=== PATIENT | male | born 1960 | race Caucasian/White ===

== ENCOUNTER 2020-04-22 16:34 | Observation (INO) | payer OTHER, SELFPAY ==
[2020-04-22] VITALS (19 sets, daily range): BP systolic 96–162; BP diastolic 69–94; PULSE 63–193; RESP 6–163; TEMP 36.4–36.6; O2SAT 96–99; BMI 25.7
[2020-04-22] MEDS: ADENOSINE 6 MG/2 ML VIAL IV (16:58)
[2020-04-22] MEDS: SODIUM CHLORIDE 0.9% 1,000 ML 1000 ML IV ×2 (17:12→18:49)
--- NOTE | 2020-04-22 17:13 | PC.NURSE ---
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 He sat down to drink some water and apply a cool compress and his heart began to race faster. He reports a history of episodes similar to this at least 3 times in the passed. In the past he was able to slow his heart down on his own. Today he was not able to control it on his own and came into the ED. Once here he was given 6 mg of adenosine. His rate dropped down to 95 bpm and feels better.
[2020-04-22 17:50] LABS: Add Manual Diff / Slide Review NO; Basophils Absolute Auto 0 /uL (0-100); Basophils Percent Auto 0.2 % (0-2); Eosinophils Absolute Auto 0 /uL (0-450); Eosinophils Percent Auto 0.1 % (2-4); Hematocrit 46.2 % (41-53); Hemoglobin 15.4 g/dL (13.5-17.5); Lymphocytes Absolute Auto 1000 /uL (1100-4500); Lymphocytes Percent Auto 5.2 % (25-40); Mean Corpuscular HGB Conc 33.4 % (30-36); Mean Corpuscular Hemoglobin 31.7 PG (26-34); Monocytes Absolute Auto 800 /uL (0-900); Monocytes Percent Auto 4.3 % (3-14); Neutrophils Absolute Auto 16900 /uL (1500-7000); Neutrophils Percent Auto 90.2 % (50-75); Platelet Count 314 X10^3/uL (150-400); Red Blood Cell Count 4.87 X10^6/uL (4.5-5.9); Red Cell Distribution Width 13.6 % (11.6-14.8); White Blood Cell Count 18.7 X10^3/uL (4.5-11.0)
[2020-04-22 17:58] LABS: Alanine Aminotransferase 32 IU/L (<50); Albumin 4.7 g/dL (3.5-5.0); Albumin Globulin Ratio 1.5 (1.0-2.8); Alkaline Phosphatase 67 U/L (38-126); Aspartate Aminotransferase 38 IU/L (17-59); BUN Creatinine Ratio 17.9 (6-22); Blood Urea Nitrogen 26 mg/dL (9-20); Carbon Dioxide 20 mmol/L (22-32); Chloride 102 mmol/L (98-107); Estimated Glomerular Filt Rate 49.8 mL/min (>60); Globulin 3.1 g/dL (1.7-4.1); Glucose 171 mg/dL (70-100); HEMOLYSIS < 15 (0-50); Potassium 4.2 mmol/L (3.4-5.1); Sodium 134 mmol/L (137-145); Total Protein 7.8 g/dL (6.3-8.2)
--- NOTE | 2020-04-22 18:12 | ED_ITS ---
HPI - Arrhythmia/Palpitations General Chief Complaint: Arrhythmia/Palpitations Stated Complaint: Heart Palpitations Time Seen by Provider: 04/22/20 16:40 Source: patient Mode of arrival: Ambulatory Limitations: no limitations History of Present Illness HPI narrative: 59-year-old gentleman with no significant medical history on no medications with prior episodes of supraventricular tachycardia presents with supraventricular tachycardia. He has been outside and active and noted his heart rate racing. He did not complain of dyspnea or chest pain. After 3 hours when his rate did not slow he came into the emergency department. Related Data Allergies Allergy/AdvReac Type Severity Reaction Status Date / Time No Known Drug Allergies Allergy Verified 04/22/20 17:13 Review of Systems Review of Systems Narrative: Pertinent positive and negative findings as per HPI Remainder of review of systems is otherwise unremarkable for Constitutional: Fevers, chills, weakness ENT: No sore throat, neck pain, ear pain CV: Chest pain, dyspnea on exertion Respiratory: Cough, wheeze, dyspnea GI: Nausea, vomiting, diarrhea, change in bowel habits, black or bloody stools : Dysuria, hematuria, flank pain MS: Muscle weakness, numbness, joint swelling or warmth Neuro: Syncope, dizziness, tingling Patient History Social History Smoking Status: Never smoker Smoking Status: Never smoker alcohol intake frequency: 0-2 drinks per day Substance Use Type: does not use Exam Narrative Exam Narrative: General: Healthy appearing, in no acute distress. Able to give a complete and coherent history. Well-nourished well-developed HEENT: Moist mucous membranes, normal sclera with reactive pupils, Neck: No JVD, supple Respiratory: Lungs are clear to auscultation, no wheezing no rales no rhonchi. Full and symmetrical air movement Cardiac: Significantly elevated heart rate, Regular without murmurs no bruits Abdomen: Soft nontender good bowel tones, no flank pain Skin: Warm and dry, well perfused Neurologic: Grossly neurologically intact with no obvious asymmetries or abnormalities Extremities: No trauma, Psych: Cooperative, appropriate insight and affect Initial Vital Signs Initial Vital Signs: Vital Signs Temperature 97.9 F 04/22/20 16:41 Pulse Rate 192 H 04/22/20 16:41 Respiratory Rate 163 H 04/22/20 16:41 Blood Pressure 96/69 04/22/20 16:41 Pulse Oximetry 99 04/22/20 16:41 Course Orders Ordered: ED Orders 04/22/20 16:53 Complete Blood Count AUTO DIFF Stat Comprehensive Metabolic Panel Stat Troponin I Stat 04/22/20 19:09 Troponin I Stat Discontinued Medications Aspirin (Aspirin Chew) 324 mg PO NOW ONE Stop: 04/22/20 20:12 Last Admin: 04/22/20 20:14 Dose: 324 mg Documented by: LEOLA Sodium Chloride (Normal Saline 0.9%) 1,000 mls @ 1,000 mls/hr IV BOLUS ONE Stop: 04/22/20 18:10 Last Infusion: 04/22/20 18:30 Dose: 0 mls/hr Documented by: Admin: 04/22/20 17:12 Dose: 1,000 mls/hr Documented by: LEOLA Sodium Chloride (Normal Saline 0.9%) 1,000 mls @ 1,000 mls/hr IV BOLUS ONE Stop: 04/22/20 19:45 Last Infusion: 04/22/20 20:07 Dose: 0 mls/hr Documented by: Admin: 04/22/20 18:49 Dose: 1,000 mls/hr Documented by: JUANITO Vital Signs Vital signs: Vital Signs - 8 hr 04/22/20 16:41 04/22/20 16:53 04/22/20 16:58 Temperature 97.9 F Pulse Rate 192 H 193 H 96 H Respiratory Rate 163 H 16 20 Blood Pressure 96/69 159/85 H Pulse Oximetry 99 98 97 04/22/20 17:00 04/22/20 17:04 04/22/20 17:15 Temperature Pulse Rate 101 H 96 H 94 H Respiratory Rate 20 20 19 Blood Pressure 162/86 H 162/83 H 156/83 H Pulse Oximetry 98 97 97 04/22/20 17:30 04/22/20 17:45 04/22/20 18:00 Temperature Pulse Rate 79 77 76 Respiratory Rate 10 L 6 L 10 L Blood Pressure 152/78 H 142/83 H 147/90 H Pulse Oximetry 98 96 98 04/22/20 18:15 04/22/20 18:36 04/22/20 18:39 Temperature Pulse Rate 79 75 70 Respiratory Rate 28 H 18 Blood Pressure 147/94 H 140/77 Pulse Oximetry 97 99 99 04/22/20 19:00 04/22/20 19:30 Temperature Pulse Rate 71 64 Respiratory Rate Blood Pressure 136/77 Pulse Oximetry 97 98 MDM - Arrhythmia/Palpitations Medical Records Attestation: I reviewed the patient's medical records. Lab Data Attestation: I reviewed the patient's lab results. Result diagrams: 04/22/20 16:53 04/22/20 16:53 Labs: Lab Results 04/22/20 04/22/20 04/22/20 Range/Units 16:53 16:53 19:09 WBC 18.7 H (4.5-11.0) X10^3/uL RBC 4.87 (4.5-5.9) X10^6/uL Hgb 15.4 (13.5-17.5) g/dL Hct 46.2 (41-53) % MCV 95.0 (80-100) fL MCH 31.7 (26-34) PG MCHC 33.4 (30-36) % RDW 13.6 (11.6-14.8) % Plt Count 314 (150-400) X10^3/uL Neut % (Auto) 90.2 H (50-75) % Lymph % (Auto) 5.2 L (25-40) % [place] % (Auto) 4.3 (3-14) % Eos % (Auto) 0.1 L (2-4) % Baso % (Auto) 0.2 (0-2) % Neut # (Auto) 32136 H (5925-5319) /uL Lymph # (Auto) 1000 L (3133-4958) /uL Sau[place] # (Auto) 800 (0-900) /uL Eos # (Auto) 0 (0-450) /uL Baso # (Auto) 0 (0-100) /uL Sodium 134 L (137-145) mmol/L Potassium 4.2 (3.4-5.1) mmol/L Chloride 102 (98-107) mmol/L Carbon Dioxide 20 L (22-32) mmol/L BUN 26 H (9-20) mg/dL Creatinine 1.45 H (0.66-1.25) mg/dL Estimated GFR 49.8 L (>60) mL/min BUN/Creatinine Ratio 17.9 (6-22) Glucose 171 H (70-100) mg/dL Calcium 10.0 (8.4-10.2) mg/dL Total Bilirubin 1.0 (0.2-1.3) mg/dL AST 38 (17-59) IU/L ALT 32 (<50) IU/L Alkaline Phosphatase 67 (38-126) U/L Troponin I 0.237 H* 1.020 H* (0.01-0.034) ng/mL Total Protein 7.8 (6.3-8.2) g/dL Albumin 4.7 (3.5-5.0) g/dL Globulin 3.1 (1.7-4.1) g/dL Albumin/Globulin Ratio 1.5 (1.0-2.8) ECG Data Attestation: I personally reviewed and interpreted this ECG as follows: Interpretation: 1. 16:53 SVT at 189, left axis deviation, nonspecific ST T wave abnormalities 2. immediately post conversion Sinus rhythm at a rate of95 Less pronounced left axis deviation, incomplete right bundle branch block nonspecific ST T wave changes, peaked T-waves 3. 1 hour post conversion post 1 L of fluid 7Sinus rhythm at a rate of6 Normal intervals, axis has returned To normal, incomplete right bundle branch block nonspecific ST T wave changes without acute ischemia MDM Narrative Medical decision making narrative: 59-year-old gentleman with no significant medical history presents with 3 hours of SVT that converted with 0.6 mg of adenosine. He tolerated that well and has no additional heart complaints. Labs returned with a mildly elevated creatinine at 0.14 and a troponin elevated at 0.237 with mild leukocytosis that is unexplained as well. 1 L of fluid was given and troponin is repeated and increased to 1.02. Still no clinical complaints consistent with acute coronary syndrome Care is reviewed with Dr. Vigil, cardiology. His recommendation was ob servation admission overnight trending troponins, echocardiogram tomorrow and follow-up plan when additional data points are available. Findings and concerns reviewed with patient and his who are agreeable to hospital admission at this time. Is currently stable. Will give him chewable aspirin but will hold on heparin for the time being. Care is reviewed with Dr Wilcox. Discharge Plan Departure Patient Disposition: Home Clinical Impression: Sinus tachycardia Instructions: DI for Paroxysmal Supraventricular Tachycardia Activity Restrictions/Additional Instructions: Thank you for coming in today You are in a supraventricular tachycardia with your heart rate going between 190 in 200 beats per minute. We converted you to sinus rhythm with a single dose of 6 mg of adenosine. Your labs are notable only for some mild dehydration. I would encourage you to recheck kidney function with your regular provider just as part of routine follow-up I have included copies of your EKGs to share with her as well. Referrals: Hodan Matt MD [Primary Care Provider] -
[2020-04-22 18:33] LABS: Troponin I 0.237 ng/mL (0.01-0.034)
[2020-04-22] MEDS: ASPIRIN 81 MG CHEW TAB 324 MG PO (20:14)
--- NOTE | 2020-04-22 21:11 | PM.HP.1 ---
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 The palpitations lasted 3 hours so he came to the ED where he was diagnosed with a very typical SVT EKG and converted to SR with 6 mg of Adenosine. His initial troponin is 0.2 and a follow-up several hours later is 1.02. He has no history of previous documented tachy arrhythmias or coronary artery disease but he has noticed 1-2 minutes spells of palpitations occurring every few months over the last year, usually responding to what sounds like basic vagal maneuvers. He did not experience any chest pain or shortness of breath but he was feeling clammy and was taking deep breaths in order to try to control the palpitations. His father has a history of coronary stenting at age 64. He does not have diabetes, hypertension, hyperlipidemia or prior vascular disease that he knows of. His EKG after conversion shows no abnormal ST or T-wave changes. He was discussed with cardiology and Dr. Vigil has recommended repeat EKG and troponin along with echocardiogram in the morning and cardiology follow-up as an outpatient if the echocardiogram is normal. The elevated troponin in the context of 3 hours of tachycardia could be considered a ?failed stress test equivalent.? He has been started on aspirin and will be followed on telemetry overnight. The question to be answered is whether this is a non ST elevation NM versus a troponin leak of tachycardia induced myocardial strain. He has additional laboratory abnormalities of white count 18.7, creatinine 1.45, glucose 171. He will also need clarified whether those are signs of chronic kidney disease and diabetes type 2 or are similarly reactions to the 3 hours of SVT. Patient History Medical History (Updated 04/22/20 @ 21:29 by Unique Wilcox MD) SVT (supraventricular tachycardia) (Acute) Surgical History No significant past surgical history (Acute) Family & Social History Family History (Updated 04/22/20 @ 21:29 by Unique Wilcox MD) Mother COPD (chronic obstructive pulmonary disease) Father CAD (coronary artery disease) Social History: He drinks 1 beer about 4 days a week, denies drugs and smoking. His backup decision maker is his . 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 Safety & Behavioral: Been Physically Hurt or No Threatened By a Person Tobacco & Substance use: Smoking Status Never smoker alcohol intake frequency 0-2 drinks per day Substance Use Type does not use Meds Home Medications and Allergies Allergies Allergy/AdvReac Type Severity Reaction Status Date / Time No Known Drug Allergies Allergy Verified 04/22/20 17:13 Review of Systems Review of Systems Narrative: Positive for palpitations and mild diaphoresis Negative for chest pain, shortness of breath, fevers, chills, sweats, coughing, abdominal pain, nausea, vomiting, diarrhea, bleeding, rash, joint pain, seizures, headaches, new allergies, difficulty talking or walking. ROS: Yes All systems reviewed with the patient and are negative except as otherwise documented Exam Vital Signs (past 8 hours): - 04/22/20 16:41 04/22/20 16:53 04/22/20 16:58 Temperature 97.9 F Pulse Rate 192 H 193 H 96 H Respiratory Rate 163 H 16 20 Blood Pressure 96/69 159/85 H Pulse Oximetry 99 98 97 04/22/20 17:00 04/22/20 17:04 04/22/20 17:15 Temperature Pulse Rate 101 H 96 H 94 H Respiratory Rate 20 20 19 Blood Pressure 162/86 H 162/83 H 156/83 H Pulse Oximetry 98 97 97 04/22/20 17:30 04/22/20 17:45 04/22/20 18:00 Temperature Pulse Rate 79 77 76 Respiratory Rate 10 L 6 L 10 L Blood Pressure 152/78 H 142/83 H 147/90 H Pulse Oximetry 98 96 98 04/22/20 18:15 04/22/20 18:36 04/22/20 18:39 Temperature Pulse Rate 79 75 70 Respiratory Rate 28 H 18 Blood Pressure 147/94 H 140/77 Pulse Oximetry 97 99 99 04/22/20 19:00 04/22/20 19:30 04/22/20 19:57 Temperature Pulse Rate 71 64 64 Respiratory Rate Blood Pressure 136/77 Pulse Oximetry 97 98 99 04/22/20 21:01 Temperature Pulse Rate Respiratory Rate Blood Pressure 149/86 H Pulse Oximetry Oxygen Delivery Method Room Air Narrative Exam Narrative: He is alert and oriented x3, in no apparent distress Pupils are equally round and reactive to light and accommodation. Extraocular muscles are intact Sclerae are pink and nonicteric Throat looks normal No lymph nodes are felt head, neck, supraclavicular area JVD is less than 6 cm No carotid bruits are heard There is no thyromegaly Heart is regular rate and rhythm without murmur Lungs are clear to auscultation bilaterally There is no chest wall tenderness Abdomen is soft, bowel sounds positive, nontender, no organomegaly. Extremities have no ankle edema Skin has no rash or jaundice Neurological exam Cranial nerves 2-12 test intact There is no tremor Motor function is 5/5 throughout No problems with gait and balance Sensation intact with slightly increased reflexes. Objective Labs Result Diagrams: 04/22/20 16:53 04/22/20 16:53 Labs: Laboratory Results - last 24 hr 04/22/20 04/22/20 04/22/20 16:53 16:53 19:09 WBC 18.7 H RBC 4.87 Hgb 15.4 Hct 46.2 MCV 95.0 MCH 31.7 MCHC 33.4 RDW 13.6 Plt Count 314 Neut % (Auto) 90.2 H Lymph % (Auto) 5.2 L Ellis % (Auto) 4.3 Eos % (Auto) 0.1 L Baso % (Auto) 0.2 Neut # (Auto) 29979 H Lymph # (Auto) 1000 L Ellis # (Auto) 800 Eos # (Auto) 0 Baso # (Auto) 0 Sodium 134 L Potassium 4.2 Chloride 102 Carbon Dioxide 20 L BUN 26 H Creatinine 1.45 H Estimated GFR 49.8 L BUN/Creatinine Ratio 17.9 Glucose 171 H Calcium 10.0 Total Bilirubin 1.0 AST 38 ALT 32 Alkaline Phosphatase 67 Troponin I 0.237 H* 1.020 H* Total Protein 7.8 Albumin 4.7 Globulin 3.1 Albumin/Globulin Ratio 1.5 Assessment & Plan Assessment & Plan narrative: Supraventricular tachycardia -First documented episode of approximately 3 hours, triggered by exertional drumming in a band, resolved with 6 mg IV adenosine today. -check TSH and follow-up troponins/EKG -discuss vagal maneuvers Elevated Troponin -this is most likely an enzyme leak secondary to the prolonged tachycardia of 200 beats per minute. -EKG shows no signs of ischemia which along with absence of chest pain makes it less likely that this is a NSTEMI -repeat EKG and troponin in the morning with echocardiogram to clarify evidence of current ischemia. -outpatient evaluation by Cardiology as discussed with Dr. Vigil, if the echo is normal and he continues to experience no signs of chest pain. -per cardiology will initiate on aspirin and use only low-dose Lovenox for now. -Check a.m. 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
[2020-04-22 22:04] LABS: COVID19 -Nasal RAPID Negative (Negative)
[2020-04-22 22:20] LABS: Thyroid Stimulating Hormone 1.65 uIU/mL (0.47-4.68)
--- NOTE | 2020-04-22 22:28 | PC.ADMIT ---
[address] Admission Note: The patient,Jordi Arroyo,59 y/o, was given written information regarding hospital policies, unit procedures and contact persons. Patient's smoking status: Never smoker. Vital Signs - 8 hr 04/22/20 16:41 04/22/20 16:53 04/22/20 16:58 Temperature 97.9 F Pulse Rate 192 H 193 H 96 H Respiratory Rate 163 H 16 20 Blood Pressure 96/69 159/85 H Pulse Oximetry 99 98 97 04/22/20 17:00 04/22/20 17:04 04/22/20 17:15 Temperature Pulse Rate 101 H 96 H 94 H Respiratory Rate 20 20 19 Blood Pressure 162/86 H 162/83 H 156/83 H Pulse Oximetry 98 97 97 04/22/20 17:30 04/22/20 17:45 04/22/20 18:00 Temperature Pulse Rate 79 77 76 Respiratory Rate 10 L 6 L 10 L Blood Pressure 152/78 H 142/83 H 147/90 H Pulse Oximetry 98 96 98 04/22/20 18:15 04/22/20 18:36 04/22/20 18:39 Temperature Pulse Rate 79 75 70 Respiratory Rate 28 H 18 Blood Pressure 147/94 H 140/77 Pulse Oximetry 97 99 99 04/22/20 19:00 04/22/20 19:30 04/22/20 19:57 Temperature Pulse Rate 71 64 64 Respiratory Rate Blood Pressure 136/77 Pulse Oximetry 97 98 99 04/22/20 21:01 04/22/20 22:14 Temperature Pulse Rate 63 Respiratory Rate 16 Blood Pressure 149/86 H 137/79 Pulse Oximetry 97 Patient up from ED via wheelchair. Patient was able to get out of the wheelchair and ambulate to the bed. Gait steady. Patient denies any chest discomfort or SOB w/rest or activity. Tele monitor getting placed at this time, Heart rate in the 60s. Patient A&O, calm and cooperative.
[2020-04-22] MEDS: SODIUM CHLORIDE 0.9% 1,000 ML 84 ML IV (22:34)
[2020-04-23 05:00] VITALS: BP 124/70; PULSE 60; RESP 16; TEMP 36.1; O2SAT 99
[2020-04-23 06:00] LABS: Add Manual Diff / Slide Review NO; Basophils Absolute Auto 100 /uL (0-100); Eosinophils Absolute Auto 100 /uL (0-450); Eosinophils Percent Auto 1.1 % (2-4); Hematocrit 39.6 % (41-53); Hemoglobin 13.3 g/dL (13.5-17.5); Lymphocytes Absolute Auto 1800 /uL (1100-4500); Lymphocytes Percent Auto 21.4 % (25-40); Mean Corpuscular HGB Conc 33.5 % (30-36); Mean Corpuscular Hemoglobin 31.8 PG (26-34); Mean Corpuscular Volume 95.1 fL (80-100); Monocytes Absolute Auto 700 /uL (0-900); Monocytes Percent Auto 8.9 % (3-14); Neutrophils Absolute Auto 5700 /uL (1500-7000); Neutrophils Percent Auto 67.6 % (50-75); Platelet Count 262 X10^3/uL (150-400); Red Blood Cell Count 4.17 X10^6/uL (4.5-5.9); Red Cell Distribution Width 13.9 % (11.6-14.8); White Blood Cell Count 8.4 X10^3/uL (4.5-11.0)
[2020-04-23 06:07] LABS: Alanine Aminotransferase 23 IU/L (<50); Albumin 3.6 g/dL (3.5-5.0); Albumin Globulin Ratio 1.4 (1.0-2.8); Alkaline Phosphatase 47 U/L (38-126); Aspartate Aminotransferase 29 IU/L (17-59); BUN Creatinine Ratio 17.9 (6-22); Blood Urea Nitrogen 15 mg/dL (9-20); Calcium 8.8 mg/dL (8.4-10.2); Carbon Dioxide 26 mmol/L (22-32); Chloride 108 mmol/L (98-107); Estimated Glomerular Filt Rate > 60.0 mL/min (>60); Globulin 2.5 g/dL (1.7-4.1); Glucose 96 mg/dL (70-100); HEMOLYSIS < 15 (0-50); Magnesium 2.1 mg/dL (1.6-2.3); Potassium 4.2 mmol/L (3.4-5.1); Sodium 138 mmol/L (137-145); Total Protein 6.1 g/dL (6.3-8.2)
[2020-04-23 06:12] LABS: Cholesterol 176 mg/dL (140-199); HDL Cholesterol 69 mg/dL (40-60); LDL Cholesterol Calculated 89 mg/dL (<100); Triglycerides 88 mg/dL (35-150)
--- NOTE | 2020-04-23 06:43 | PC.NURSE ---
Critical Lab At 0628 recieved Critical trop of 1.720, Notified DR Wilcox by phone, no new orders given, read EKG results him and reported that pt has denied pain all shift.
[2020-04-23 08:00] VITALS: BP 131/67; PULSE 63; RESP 16; TEMP 37.1; O2SAT 99
[2020-04-23] MEDS: ENOXAPARIN 40 MG/0.4 ML SYRINGE SUBCUT (08:20)
--- NOTE | 2020-04-23 10:28 | PC.NURSE ---
948 notified by DOUBLE BOTTOM DRIVER that patient had 8 beat run of VTACH. Strip printed and shown to Dr. Carlson. Patient assessed and sitting up in bed, denies symptoms at this time, states he thinks he did feel a little palpation or flutter in his chest for a few seconds previously. Continue to follow closely. Call light within reach.
[2020-04-23] MEDS: SODIUM CHLORIDE 0.9% 1,000 ML 84 ML IV (11:17)
--- NOTE | 2020-04-23 11:17 | CM.DANOTE ---
DCP: Case received, EMR reviewed and met with patient. Introduced self and role. Was able to obtain information from patient regarding his baseline activity status prior to hospitalization. DCP assessment completed with information currently available. Patient is a 59 year old male who admitted yesterday afternoon to the care of the hospitalist team. PCP: Dr. Matt. Payer: confirmed: [facility]. Patient came to the hospital via private vehicle secondary to heart palpitations. 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 Patient indicated, he has had this before, and it usually passes, but this time, it didn't. Patient was diagnosed with SVT. Met with patient in his room. He is alert and oriented, he works at [employer]. He resides in [place] with his spouse, Ewa. He will be having another troponin drawn this afternoon. P: DCP to continue to follow. There is a possibility that patient could be transferred over to [facility], will depend upon his lab work. Marija Jhaveri RN/Key Maker
[2020-04-23 12:00] VITALS: BP 136/83; PULSE 59; RESP 16; TEMP 37; O2SAT 99
--- NOTE | 2020-04-23 12:09 | DI.ECHO.S_ITS ---
Echocardiogram Report + + :Name: HELENA ARAUZ Study Date: 04/23/2020 Height: 70 in : :[facility] Weight: 185 lb : : Gender: Male BSA: 2.0 m2 : :: 1960 Age: 59 yrs BP: 138/68 mmHg: :Reason For Study: Palpitations : :Ordering Physician: [place] : :Hospitalist Performed By: Darlene Martins : :Referring: LINDSEY GALLEGOS : + + Interpretation Summary 1) Normal left ventriuclar thickness, size, wall motion, and systolic function (EF 65-70%). 2) Normal right ventricular size and function. 3) No significant valvular abnormalities. 4) No prior Echo available for comparison. Procedure: A two-dimensional transthoracic echocardiogram with color flow and Doppler was performed. The study quality was technically adequate. There is no prior echocardiogram noted for this patient. The patient was in normal sinus rhythm during the exam. Left Ventricle: The left ventricle is normal in size. There is normal left ventricular wall thickness. The ejection fraction is estimated to be 65-70%. Left ventricular wall motion is normal. Diastolic parameters suggest probable normal left ventricular diastolic function and normal filling pressures. Right Ventricle: The right ventricle is normal in size and function. Atria: Both atria are normal in size. There is no Doppler evidence for an atrial septal defect. Mitral Valve: The mitral valve is normal in structure and function. There is mild mitral regurgitation. Aortic Valve: The aortic valve is trileaflet. The aortic valve opens well. There is no aortic valve stenosis. No aortic regurgitation is present. Tricuspid Valve: The tricuspid valve is normal in structure and function. There is a trace or physiologic amount of tricuspid regurgitation. Pulmonary artery pressures cannot be estimated because of the lack of a measurable TR jet velocity. Pulmonic Valve: The pulmonic valve is not well seen, but is grossly normal. There is a trace or physiologic amount of pulmonic regurgitation. Great Vessels: The ascending aorta is normal in size. The IVC is of normal diameter and collapses greater than 50% with a sniff. This suggests a low right atrial pressure of 3 mm Hg. Pericardium/ Pleura There is no pericardial effusion. There is no pleural effusion. MMode/2D Measurements & Calculations LVIDd: 5.1 cm LVOT diam: 2.2 cm LVIDs: 2.9 cm asc Aorta Diam: 2.9 cm IVSd: 0.88 cm Ao Arch Diam (Prox Trans): 3.0 cm LVPWd: 0.71 cm LV storey. diameter/BSA (cm/m^2): 2.5 LV sys. diameter/BSA (cm/m^2): 1.4 FS: 43.2 % LA A2 area: 20.1 cm2 RA long axis: 5.6 cm LA A4 area: 15.7 cm2 RA area: 18.3 cm2 LA length (vol): 5.6 cm RA vol: 50.9 ml LA vol: 48.2 ml RA : 25.2 ml/m2 LA vol index: 23.8 ml/m2 RVD1 (basal): 3.5 cm TAPSE: 2.9 cm Doppler Measurements & Calculations Ao V2 max: 182.0 cm/sec LVOT Max John: 109.9 cm/sec Ao V2 mean: 132.6 cm/sec LV V1 max P.8 mmHg Ao V2 VTI: 36.7 cm LV V1 VTI: 22.0 cm Ao max P.2 mmHg Ao mean P.7 mmHg ANGELA(I,D): 2.4 cm2 MV E max john: 87.5 cm/sec ANGELA(V,D): 2.4 cm2 MV A max john: 71.3 cm/sec ANGELA indexed to BSA (cm^2/m^2): 1.2 MV E/A: 1.2 sev ratio: 0.60 Med Peak E' John: 8.7 cm/sec E/E' med: 10.0 Lat Peak E' John: 9.1 cm/sec E/E' lat: 9.6 E/e' average: 9.8 MV dec time: 0.16 sec SV(LVOT): 86.8 ml Reading Physician:01:17 PM
[2020-04-23 14:03] LABS: Troponin I 0.934 ng/mL (0.01-0.034)
[2020-04-23 15:20] VITALS: BP 129/76; PULSE 59; RESP 17; TEMP 37; O2SAT 97
--- NOTE | 2020-04-23 17:03 | PM.DS.1 ---
History of Present Illness History of Present Illness Date Patient Seen: 04/23/20 Time Patient Seen: 17:03 Chief complaint: Heart Palpitations Narrative: As per Dr. 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 The palpitations lasted 3 hours so he came to the ED where he was diagnosed with a very typical SVT EKG and converted to SR with 6 mg of Adenosine. His initial troponin is 0.2 and a follow-up several hours later is 1.02. He has no history of previous documented tachy arrhythmias or coronary artery disease but he has noticed 1-2 minutes spells of palpitations occurring every few months over the last year, usually responding to what sounds like basic vagal maneuvers. He did not experience any chest pain or shortness of breath but he was feeling clammy and was taking deep breaths in order to try to control the palpitations. His father has a history of coronary stenting at age 64. He does not have diabetes, hypertension, hyperlipidemia or prior vascular disease that he knows of. His EKG after conversion shows no abnormal ST or T-wave changes. He was discussed with cardiology and Dr. Vigil has recommended repeat EKG and troponin along with echocardiogram in the morning and cardiology follow-up as an outpatient if the echocardiogram is normal. The elevated troponin in the context of 3 hours of tachycardia could be considered a ?failed stress test equivalent.? He has been started on aspirin and will be followed on telemetry overnight. The question to be answered is whether this is a non ST elevation [place] versus a troponin leak of tachycardia induced myocardial strain. He has additional laboratory abnormalities of white count 18.7, creatinine 1.45, glucose 171. He will also need clarified whether those are signs of chronic kidney disease and diabetes type 2 or are similarly reactions to the 3 hours of SVT. Discharge Providers Provider Date of admission: 04/22/20 22:15 Discharge Date: 04/23/20 Primary care physician: Hodan Matt MD Discharge provider: Tristen Carlson DO Summary Hospital Course Discharge Diagnosis: 1. Supraventricular tachycardia, resolved, present on admission 2. Elevated troponin secondary to demand ischemia, acute, present on admission 3. Dehydration, acute, present on admission, resolved 4. Acute kidney injury, present on admission, resolved 4. Leukocytosis, acute, present on admission, resolved Hospital Course: Jordi Arroyo is a 59-year-old male who was admitted with a supraventricular tachycardia and elevated troponin. Patient had been drumming on a truck outside, and based on laboratory evaluation was likely severely dehydrated with leukocytosis, elevated creatinine that all improved the following morning. He was given fluid resuscitation and improved. He did have a couple episodes of nonsustained ventricular tachycardia on telemetry monitoring while admitted, but these were very short lived in the patient was asymptomatic (3 and 6 beat episodes a few hours apart). His electrolytes were unremarkable. His echocardiogram was unremarkable with an EF of 60 to 65% with no significant wall motion abnormalities and no valvular abnormalities as well. He had no chest pain. Troponin ultimately peaked at 1.7 in the down trended. Lipid panel was unremarkable. Per cardiology, he has essentially failed a stress test and will need to follow-up with cardiology as an outpatient for further ischemic evaluation. For now he will be started on aspirin and a cholesterol medication for medical management of possible heart disease. Status at Discharge Cognitive/behavioral status at discharge: oriented Exam Vital Signs (past 8 hours): - 04/23/20 12:00 04/23/20 15:20 Temperature 98.6 F 98.6 F Pulse Rate 59 L 59 L Respiratory Rate 16 17 Blood Pressure 136/83 129/76 Pulse Oximetry 99 97 Oxygen Delivery Method Nasal Cannula Oxygen Flow Rate 0 Narrative Exam Narrative: GENERAL APPEARANCE: Well developed, well nourished, in no acute distress. SKIN: Inspection of the skin reveals no rashes, ulcerations or petechiae. HEENT: Normocephalic atraumatic, extraocular muscles are intact, oropharynx is clear and mucous membranes are moist, neck is supple without adenopathy NECK: Supple and symmetric. There was no thyroid enlargement, and no tenderness, or masses were felt. CHEST: Normal AP diameter and normal contour without any kyphoscoliosis. LUNGS: Auscultation of the lungs revealed no wheezes, rhonchi, or rales. CARDIOVASCULAR: There was a regular rate and rhythm without any murmurs, gallops, rubs. Peripheral pulses were 2+ and symmetric. ABDOMEN: Soft and nontender with normal bowel sounds. No ascites was noted. MUSCULOSKELETAL: There was no tenderness or effusions noted. Muscle strength and tone were normal. EXTREMITIES: No cyanosis, clubbing or edema. NEUROLOGIC: Alert and oriented x 3. Normal affect. Gait was normal. Strength is +5/5 in the Upper Extremities and Lower Extremities Bilaterally. Sensation to touch was normal. Objective Labs Result Diagrams: 04/23/20 05:35 04/23/20 05:35 Labs: Laboratory Results - last 24 hr 04/22/20 04/22/20 04/22/20 16:53 16:53 16:53 WBC 18.7 H RBC 4.87 Hgb 15.4 Hct 46.2 MCV 95.0 MCH 31.7 MCHC 33.4 RDW 13.6 Plt Count 314 Neut % (Auto) 90.2 H Lymph % (Auto) 5.2 L [place] % (Auto) 4.3 Eos % (Auto) 0.1 L Baso % (Auto) 0.2 Neut # (Auto) 84409 H Lymph # (Auto) 1000 L [place] # (Auto) 800 Eos # (Auto) 0 Baso # (Auto) 0 Sodium 134 L Potassium 4.2 Chloride 102 Carbon Dioxide 20 L BUN 26 H Creatinine 1.45 H Estimated GFR 49.8 L BUN/Creatinine Ratio 17.9 Glucose 171 H Calcium 10.0 Magnesium Total Bilirubin 1.0 AST 38 ALT 32 Alkaline Phosphatase 67 Troponin I 0.237 H* Total Protein 7.8 Albumin 4.7 Globulin 3.1 Albumin/Globulin Ratio 1.5 Triglycerides Cholesterol LDL Cholesterol, Calc HDL Cholesterol TSH 1.65 COVID-19 PCR 04/22/20 04/22/20 04/23/20 19:09 20:20 05:35 WBC RBC Hgb Hct MCV MCH MCHC RDW Plt Count Neut % (Auto) Lymph % (Auto) [place] % (Auto) Eos % (Auto) Baso % (Auto) Neut # (Auto) Lymph # (Auto) [place] # (Auto) Eos # (Auto) Baso # (Auto) Sodium Potassium Chloride Carbon Dioxide BUN Creatinine Estimated GFR BUN/Creatinine Ratio Glucose Calcium Magnesium Total Bilirubin AST ALT Alkaline Phosphatase Troponin I 1.020 H* Total Protein Albumin Globulin Albumin/Globulin Ratio Triglycerides 88 Cholesterol 176 LDL Cholesterol, Calc 89 HDL Cholesterol 69 H TSH COVID-19 PCR Negative 04/23/20 04/23/20 04/23/20 05:35 05:35 13:26 WBC 8.4 D RBC 4.17 L Hgb 13.3 L Hct 39.6 L MCV 95.1 MCH 31.8 MCHC 33.5 RDW 13.9 Plt Count 262 Neut % (Auto) 67.6 D Lymph % (Auto) 21.4 L [place] % (Auto) 8.9 Eos % (Auto) 1.1 L Baso % (Auto) 1.0 Neut # (Auto) 5700 Lymph # (Auto) 1800 [place] # (Auto) 700 Eos # (Auto) 100 Baso # (Auto) 100 Sodium 138 Potassium 4.2 Chloride 108 H Carbon Dioxide 26 BUN 15 Creatinine 0.84 Estimated GFR > 60.0 BUN/Creatinine Ratio 17.9 Glucose 96 Calcium 8.8 Magnesium 2.1 Total Bilirubin 1.0 AST 29 ALT 23 Alkaline Phosphatase 47 Troponin I 1.720 H* 0.934 H* Total Protein 6.1 L Albumin 3.6 Globulin 2.5 Albumin/Globulin Ratio 1.4 Triglycerides Cholesterol LDL Cholesterol, Calc HDL Cholesterol TSH COVID-19 PCR Discharge Plan Discharge Plan Patient Disposition: Home Discharge comment: You were admitted to the hospital with a very fast heart rate. This improved with fluids. Because of this fast heart rate you had elevations in an enzyme released when there is some heart damage. Your ultrasound of your heart was normal, and because of improvement in your rate you are being discharged home. Your being treated as is if you have some small blockages in your heart vessels for now, but you should follow-up with a senior strategy manager as you may need to have further workup of your heart. Please follow-up with your primary care provider this week. Discharge orders & Medications Prescriptions: New aspirin 81 mg tablet,delayed release (DR/EC) 81 mg PO DAILY 30 Days Qty: 30 RF: 0 atorvastatin 40 mg tablet 40 mg PO BEDTIME 30 Days Qty: 30 RF: 0 Follow up/Referrals: Hodan Matt MD [Primary Care Provider] - Diet/Activity/Treatments Diet: Diet as Tolerated Activity: As tolerated Visit Report/Discharge Packet Instructions: DI for Paroxysmal Supraventricular Tachycardia Discharge Data Primary Care Provider: Hodan Matt Attending Provider: Unique Wilcox Admit Date/Time: 04/22/20 22:15 Quality VTE Deep Vein Thrombosis/Pulmonary Embolism Present on Admission: No
--- NOTE | 2020-04-24 09:00 | CM.DPC ---
DCP Discharge Home Per MD, pt had ultrasound yesterday and results returned negative and pt was medically stable to d/c home yesterday evening 04/23/20 with outpt Cardiology follow up and no identified barriers to discharge. Plan: Patient discharged home yesterday evening after DCP shift via POV and no further discharge needs at that time. DOV [place]
== END 2020-04-23 17:53 | disposition home or self-care (01) ==
LOC: ED 21:07 → AC 04-23 13:22
PROVIDERS: Internal Medicine; Admitting Provider Family Medicine; Emergency Provider Emergency Medicine; PCP Internal Medicine; Referring Provider Emergency Medicine; Visit Provider Family Medicine
DX: I47.1 Supraventricular tachycardia (principal); R00.2 Palpitations; N17.9 Acute kidney failure, unspecified; I24.8 Other forms of acute ischemic heart disease; R79.89 Other specified abnormal findings of blood chemistry; R73.9 Hyperglycemia, unspecified; D72.829 Elevated white blood cell count, unspecified; E86.0 Dehydration; Z11.59 Encounter for screening for other viral diseases
CPT/HCPCS: 36415; 80053; 80061; 82962; 83735; 84443; 84484; 85025; 87635; 93005; 93306; 96361; 96372; 96374; 99284; G0378; J0153; J1650